=== PATIENT | male | born 1985 | race Caucasian/White ===

== ENCOUNTER → 2018-06-06 | Outpatient (CLI) | payer BC ==
--- NOTE | 2018-06-06 08:03 | US ---
EXAMINATION TYPE: US abdomen complete DATE OF EXAM: 06/06/2018 COMPARISON: US 10/08/2013 CLINICAL HISTORY: R10.84 Abdominal Pain. Epigastric pain EXAM MEASUREMENTS: Liver Length: 14.3 cm Gallbladder Wall: 0.2 cm CBD: 0.3 cm Spleen: 10.8 cm Right Kidney: 11.1 x 3.9 x 4.8 cm Left Kidney: 10.8 x 5.1 x 5.2 cm Pancreas: Obscured by bowel gas, visualized portions appear slightly hypoechoic Liver: wnl Gallbladder: wnl Evidence for sonographic Peraza's sign: No CBD: wnl Spleen: wnl Right Kidney: No hydronephrosis or masses seen Left Kidney: No hydronephrosis or masses seen Upper IVC: wnl Abd Aorta: wnl as visualized, distal portion obscured by bowel gas The liver is homogenous. The intrahepatic portion of the IVC and proximal abdominal aorta are within normal limits. There is no evidence of cholelithiasis. Common bile duct is unremarkable. The spl een is unremarkable. Kidneys are symmetric and free of hydronephrosis. No renal lesions are seen. IMPRESSION: 1. Suboptimal visualization of the pancreas although the visualized portions appear slightly hypoecho ic. This likely is artifactual related to technique, however correlation with serum amylase and lipas e is recommended. 2. No sonographic evidence of cholelithiasis or acute cholecystitis.
== END | disposition home or self-care (01) ==
LOC: RADUSWWP 06:54
PROVIDERS: ATTEND Internal Medicine
DX: R10.84 Generalized abdominal pain (principal)
CPT/HCPCS: 76700

== ENCOUNTER 2019-08-25 07:09 | Emergency (ER) | payer BC, OTHER ==
[2019-08-25 07:19] VITALS: BP 143/91; PULSE 68; RESP 18; TEMP 97.4
[2019-08-25] MEDS ORDERED: diphenhydrAMINE 50 MG/ML 1 ML VIAL IVP STA (07:28)
[2019-08-25] MEDS ORDERED: FAMOTIDINE 20 MG/2 ML VIAL IV STA (07:28)
[2019-08-25] MEDS ORDERED: methylPREDNISolone SOD SUCCI 125 MG/2 ML VIAL IV STA (07:28)
--- NOTE | 2019-08-25 07:28 | ED ---
Skin/Abscess/FB HPI - General Chief complaint: Skin/Abscess/Foreign Body Stated complaint: Hives Time Seen by Provider: 08/25/19 07:11 Source: patient Mode of arrival: ambulatory Limitations: no limitations - History of Present Illness Initial comments: 34-year-old male history of urticaria present to emergency prior for chief complaint of hives. Patient states that he has had hives in the past he states he has never been positive why they occur. Patient states that 9:30 PM last night he began developing hives on his trunk, and they have been spreading since. Patient states he took bendadryl at 1030PM last night however he continues to have hives as well as itching. Patient denies medication use aside from the Benadryl. He denies any new detergents lotion soaps or any contacts that he can think of he states he has had a dog for years. Denies travel. Denies fever. Denies sick contacts. Patient states he seems to nose a pattern of stress and states she has been under a lot of stress lately. Remaining review systems negative, patient denies any swelling of the tongue and lips eyes or sensation of throat swelling or compression. Patient appears well on arrival. No signs of acute distress. - Related Data Previous Rx's Medication Instructions Recorded predniSONE 20 mg PO BID 4 Days #8 tab 08/25/19 Allergies Allergy/AdvReac Type Severity Reaction Status Date / Time Penicillins Allergy Anaphylaxis Verified 08/25/19 07:16 Review of Systems ROS Statement: Those systems with pertinent positive or pertinent negative responses have been documented in the HPI. ROS Other: All systems not noted in ROS Statement are negative. Past Medical History Past Medical History: No Reported History History of Any Multi-Drug Resistant Organisms: None Reported Additional Past Surgical History / Comment(s): cyst removal from neck Past Psychological History: No Psychological Hx Reported Smoking Status: Current every day smoker Past Alcohol Use History: None Reported Past Drug Use History: Marijuana General Exam - General Exam Comments Initial Comments: General: The patient is awake and alert, in no distress, and does not appear acutely ill. Eye:+3mm pupils are equal, round and reactive to light, extra-ocular movements are intact. No nystagmus. There is normal conjunctiva bilaterally. No signs of icterus. Ears, nose, mouth and throat: There are moist mucous membranes and no oral lesions. No swelling of the tongue or lips. Neck: The neck is supple, there is no tenderness or JVD. Cardiovascular: There is a regular rate and rhythm. No murmur, rub or gallop is appreciated. Respiratory: Lungs are clear to auscultation, respirations are non-labored, breath sounds are equal. No wheezes, stridor, rales, or rhonchi. Musculoskeletal: Radial pulses equal bilaterally 2+. Neurological: A&O x 3. CN II-XII intact grossly, There are no obvious motor or sensory deficits. Coordination appears grossly intact. Speech is normal. Skin: Skin is warm and dry. Rashes wheels on the trunk, abdomen, upper thighs. No facial involvement or involvement of hand/feet/neck. Psychiatric: Cooperative, appropriate mood & affect, normal judgment. Limitations: no limitations Course Vital Signs 08/25/19 07:16 Temperature 97.4 F L Pulse Rate 68 Respiratory 18 Rate Blood Pressure 143/91 O2 Sat by Pulse 98 Oximetry Medical Decision Making - Medical Decision Making 34-year-old male presenting for hives. Hx of urticaria. Possibly stress induced, no other identifiable cause. Patient has urticaria on examination. No signs of angioedema swelling of the tongue lip or compresses symptoms. Patient appears well no distress. Patient given Solumedrol Benadryl Pepcid. Patient will be discharged with a four-day prescription for prednisone. Patient is to follow-up with primary care provider. Return parameters discussed patient verbalized understanding. Discharged appearing well. Disposition Clinical Impression: Urticaria, Elevated blood pressure reading Disposition: HOME SELF-CARE Condition: Good Instructions (If sedation given, give patient instructions): Urticaria (ED) Additional Instructions: Please use medication as discussed. Please follow-up with family doctor in the next 2 days, including for elevated blood pressure reading. Please return to emergency room if the symptoms increase or worsen or for any other concerns. Prescriptions: predniSONE 20 mg PO BID 4 Days #8 tab Is patient prescribed a controlled substance at d/c from ED?: No Referrals: None,Stated [Primary Care Provider] - 1-2 days Time of Disposition: 07:31
== END 2019-08-25 08:05 | disposition home or self-care (01) ==
LOC: EC 07:09
DX: L50.9 Urticaria, unspecified (principal); R03.0 Elevated blood-pressure reading, without diagnosis of hypertension; F17.200 Nicotine dependence, unspecified, uncomplicated; Z88.0 Allergy status to penicillin
CPT/HCPCS: 99282; 96374; 96375 ×2; J1200; J2930

== ENCOUNTER 2019-08-27 07:00 | Emergency (ER) | payer OTHER ==
[2019-08-27 07:06] VITALS: BP 134/82; PULSE 77; TEMP 97.5
[2019-08-27] MEDS ORDERED: FAMOTIDINE 20 MG/2 ML VIAL IV STA (07:36)
[2019-08-27] MEDS ORDERED: methylPREDNISolone SOD SUCCI 125 MG/2 ML VIAL IV STA (07:36)
--- NOTE | 2019-08-27 07:41 | ED ---
Skin/Abscess/FB HPI - General Chief complaint: Skin/Abscess/Foreign Body Stated complaint: Hives Time Seen by Provider: 08/27/19 07:09 Source: patient, RN notes reviewed, old records reviewed Mode of arrival: ambulatory Limitations: no limitations - History of Present Illness Initial comments: Patient is a 34-year-old male presents emergency room today with treatment of hives for the past week. Patient reports he was seen in emergency department 2 days ago, was given IV medications, and was discharged. Patient states that he woke up with worsening hives. He has not been able to get his prescription for steroids filled because he is out of sufficient monetary funds. Patient states that he has a prescription ready and waiting. Patient reports that he has been taking Benadryl for the past day but continues to complain of the hives returned reoccurring. Patient states that he has had no difficulty breathing. Denies any tongue swelling. - Related Data Home Medications Medication Instructions Recorded Confirmed diphenhydrAMINE [Benadryl] 50 mg PO Q4H PRN 08/27/19 08/27/19 Previous Rx's Medication Instructions Recorded predniSONE 20 mg PO BID 4 Days #8 tab 08/25/19 Allergies Allergy/AdvReac Type Severity Reaction Status Date / Time Penicillins Allergy Anaphylaxis Verified 08/27/19 07:25 Review of Systems ROS Statement: Those systems with pertinent positive or pertinent negative responses have been documented in the HPI. ROS Other: All systems not noted in ROS Statement are negative. Past Medical History Past Medical History: No Reported History History of Any Multi-Drug Resistant Organisms: None Reported Additional Past Surgical History / Comment(s): cyst removal from neck Past Psychological History: No Psychological Hx Reported Smoking Status: Current every day smoker Past Alcohol Use History: None Reported Past Drug Use History: Marijuana General Exam - General Exam Comments Initial Comments: 34-year-old male. Alert and oriented. Limitations: no limitations General appearance: alert, in no apparent distress Head exam: Present: atraumatic, normocephalic, normal inspection Eye exam: Present: normal appearance, PERRL, EOMI. Absent: scleral icterus, conjunctival injection, periorbital swelling ENT exam: Present: normal exam, mucous membranes moist Neck exam: Present: normal inspection. Absent: tenderness, meningismus, lymphadenopathy Respiratory exam: Present: normal lung sounds bilaterally. Absent: respiratory distress, wheezes, rales, rhonchi, stridor Cardiovascular Exam: Present: regular rate, normal rhythm, normal heart sounds. Absent: systolic murmur, diastolic murmur, rubs, gallop, clicks GI/Abdominal exam: Present: soft, normal bowel sounds. Absent: distended, tenderness, guarding, rebound, rigid Extremities exam: Present: normal inspection, full ROM, normal capillary refill. Absent: tenderness, pedal edema, joint swelling, calf tenderness Back exam: Present: normal inspection Neurological exam: Present: alert, oriented X3, CN II-XII intact Psychiatric exam: Present: normal affect, normal mood Skin exam: Present: warm, dry, intact, normal color. Absent: rash Course Vital Signs 08/27/19 07:03 Temperature 97.5 F L Pulse Rate 77 Respiratory 16 Rate Blood Pressure 134/82 O2 Sat by Pulse 99 Oximetry Medical Decision Making - Medical Decision Making This is a 34-year-old male presents today for evaluation with chief complaint of hives. Patient has evidence of hives over his trunk and arm. At this time patient's has no tongue or lip swelling. There is no distress. Given IV Solu- Medrol and Pepcid. Patient advised to take the medications as previously prescribed steroids and maybe needs to follow-up with digital specialist. Questions were answered. Disposition Clinical Impression: Urticaria Disposition: HOME SELF-CARE Condition: Good Instructions (If sedation given, give patient instructions): Urticaria (ED) Additional Instructions: Please use previously prescribed medication as discussed. Please follow up with family doctor if symptoms have not improved over the next two days. Please return to the emergency room if your symptoms increase or worsen or for any other concerns. Is patient prescribed a controlled substance at d/c from ED?: No Referrals: None,Stated [Primary Care Provider] - 1-2 days Joel Minor DO [Doctor of Osteopathic Medicine] - 1-2 days Time of Disposition: 07:41
[2019-08-27] MEDS ORDERED: methylPREDNISolone SOD SUCCI 125 MG/2 ML VIAL IM ONE (07:44)
[2019-08-27] MEDS ORDERED: FAMOTIDINE 20 MG TAB PO STA (07:47)
[2019-08-27 08:07] VITALS: RESP 18
== END 2019-08-27 08:08 | disposition home or self-care (01) ==
LOC: EC 07:00
DX: L50.9 Urticaria, unspecified (principal); F17.200 Nicotine dependence, unspecified, uncomplicated; Z88.0 Allergy status to penicillin
CPT/HCPCS: 96372; 99283